=== PATIENT | female | born 1980 | race African-American/Black ===

== ENCOUNTER 2017-11-26 17:38 | Emergency (ER) | payer OTHER ==
[2017-11-26 17:44] VITALS: BP 115/71; PULSE 90; TEMP 99.6; BMI 31.5
--- NOTE | 2017-11-26 17:44 | PDOC ---
Rapid Medical Evaluation Chief Complaint: Shortness of Breath Time Seen by Provider: 11/26/17 17:41 Medical Evaluation: Allergies Allergy/AdvReac Type Severity Reaction Status Date / Time No Known Allergies Allergy Verified 11/26/17 17:40 11/26/17 17:41 I have performed a brief in-person evaluation of this patient. The patient presents with a chief complaint of: flu like symptoms x 5 days, subjective fever/chills, denies vomiting/diarrhea, sent in by PCP willa Hong +flu at home Pertinent physical exam findings: dry cough, lungs ctab I have ordered the following: cxr The patient will proceed to the ED for further evaluation. Discharge Disposition - Diagnosis Flu-like symptoms - Referrals - Patient Instructions - Post Discharge Activity
--- NOTE | 2017-11-26 21:59 | PDOC ---
History of Present Illness - General Chief Complaint: Shortness of Breath Stated Complaint: CHEST PAIN Time Seen by Provider: 11/26/17 17:41 History Source: Patient Exam Limitations: No Limitations - History of Present Illness Initial Comments: CHIEF COMPLAINT: 37 y/o female c/o flu like symptoms for the past 4 days. HISTORY OF PRESENT ILLNESS: the patient admits to [place], body aches, hot/chills, dry cough, chest discomfort, runny nose x 4 days. One of her children had the flu last week and another was diagnosed today. She states she was seen by Dr. Webster who suggested she come in for an evaluation. The patient is not taking any medication at home. Vital signs on arrival are within normal limits. REVIEW OF SYSTEMS: GENERAL/CONSTITUTIONAL: Subjective fever/chills. +body aches. No weakness. No weight change. HEAD, EYES, EARS, NOSE AND THROAT: No change in vision. No ear pain or discharge. No sore throat. CARDIOVASCULAR: +chest discomfort. No shortness of breath. RESPIRATORY: +dry cough. No wheezing or hemoptysis. GASTROINTESTINAL: No abd pain, nausea, vomiting, diarrhea. GENITOURINARY: No dysuria, frequency, or change in urination. MUSCULOSKELETAL: No joint or muscle swelling or pain. No neck or back pain. SKIN: No rash or easy bruising. NEUROLOGIC: +headache. No vertigo, loss of consciousness, or loss of sensation. PHYSICAL EXAM: GENERAL: The patient is awake, alert, and fully oriented, in no acute distress. She has a persistent dry cough. HEAD: Normal with no signs of trauma. ENT: Pupils equal, round and reactive to light, extraocular movements intact, sclera anicteric, conjunctiva clear. LUNGS: Clear to auscultation bilaterally. Normal excursion. No respiratory distress or use of accessory muscles. CV: RRR, S1/S2, no MRG. Cap refill < 2 sec. ABDOMEN: Soft, non-distended, non-tender even to deep palpation, no hepatomegaly or splenomegaly, no masses. EXTREMITIES: Normal range of motion, no edema. NEUROLOGICAL: Normal speech, normal gait. CN II-XII grossly intact. PSYCH: Normal mood, normal affect. SKIN: Warm, dry, normal turgor, no rashes or lesions noted. Past History - Past Medical History Allergies/Adverse Reactions: Allergies Allergy/AdvReac Type Severity Reaction Status Date / Time No Known Allergies Allergy Verified 11/26/17 17:40 Home Medications: Ambulatory Orders NK [No Known Home Medication] 12/26/15 Anemia: No Asthma: No Cancer: No Cardiac Disorders: No COPD: No DVT: No Diabetes: No HTN: No Seizures: No Thyroid Disease: No - Surgical History Abdominal Surgery: No - Reproductive History (#): 11 Para: 6 Therapeutic (s) & number: Yes (X 4) Spontaneous : 1 - Suicide/Smoking/Psychosocial Hx Smoking Status: No Smoking History: Never smoked Have you smoked in the past 12 months: No Number of Cigarettes Smoked Daily: 0 Information on smoking cessation initiated: No Hx Alcohol Use: No Drug/Substance Use Hx: No Substance Use Type: None Hx Substance Use Treatment: No *Physical Exam - Vital Signs Last Vital Signs Temp Pulse Resp BP Pulse Ox 99.6 F 90 18 115/71 100 11/26/17 17:41 11/26/17 17:41 11/26/17 17:41 11/26/17 17:41 11/26/17 17:41 Medical Decision Making - Medical Decision Making A/P: 37 y/o female with flu like symptoms and 2 close contacts with the flu. Plan is as follows: 1. hcg 2. CXR hcg - negative CXR (wet read) - No acute pathology. The patient was given her results. Patient has clinical flu and has 2 children with flu. Will diagnose her with the flu. She is on day 4 so outside of tamiflu window. Suggested she alternate between tylenol and motrin every 3 hours for fever/body aches, drink plenty of liquids and get lots of rest. Suggested she return to the ER with any worsening or concerning symptoms. The patient verbalizes understanding of all instructions, has no further questions and is awaiting discharge. *DC/Admit/Observation/Transfer Diagnosis at time of Disposition: Flu-like symptoms, Influenza - Discharge Dispostion Disposition: HOME Condition at time of disposition: Stable - Referrals Referrals: Bozena Webster MD [Primary Care Provider] - Call tomorrow - Patient Instructions Printed Discharge Instructions: DI for Influenza -- Adult Additional Instructions: Discharge Instructions: -You have the flu -Alternate between 600mg of Motrin and 650mg of Tylenol every 3 hours for fever -Drink plenty of fluids and get lots of rest -Follow up with Dr. Webster tomorrow -Return to the ER with any worsening or concerning symptoms - Post Discharge Activity Forms/Work/School Notes: Back to Work
--- NOTE | 2017-11-26 22:27 | PDOC ---
*Physical Exam - Vital Signs Last Vital Signs Temp Pulse Resp BP Pulse Ox 99.6 F 90 18 115/71 100 11/26/17 17:41 11/26/17 17:41 11/26/17 17:41 11/26/17 17:41 11/26/17 17:41 Medical Decision Making - Medical Decision Making 11/26/17 22:27 agree with care from DUNCAN Weston *DC/Admit/Observation/Transfer Diagnosis at time of Disposition: Flu-like symptoms - Referrals Referrals: Bozena Webster MD [Primary Care Provider] - - Patient Instructions - Post Discharge Activity
[2017-11-27] MEDS ORDERED: IBUPROFEN 600 MG TABLET (FP) PO ONE ×2 (00:19→00:25)
[2017-11-27] MEDS ORDERED: ALBUTEROL SO4 18 GM HFA INHALER IH PRN (00:20)
== END 2017-11-27 00:31 | disposition home or self-care (01) ==
LOC: JER 17:38
DX: J11.1 Influenza due to unidentified influenza virus with other respiratory manifestations (principal)
CPT/HCPCS: 71046-TC-FY; 84703; 99282-25

== ENCOUNTER 2018-01-26 23:31 | Emergency (ER) | payer OTHER ==
[2018-01-26 23:58] VITALS: BP 107/62; PULSE 77; TEMP 98.6; BMI 31.3
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
[2018-01-27] MEDS ORDERED: METHOCARBAMOL 500 MG TABLET PO ONE (01:01)
[2018-01-27] MEDS ORDERED: METHOCARBAMOL 500 MG TABLET ONE (01:03)
--- NOTE | 2018-01-27 12:18 | EKG ---
Test Reason : Blood Pressure : / mmHG Vent. Rate : 070 BPM Atrial Rate : 070 BPM P-R Int : 186 ms QRS Dur : 086 ms QT Int : 406 ms P-R-T Axes : 069 065 061 degrees QTc Int : 438 ms NORMAL SINUS RHYTHM POSSIBLE LEFT ATRIAL ENLARGEMENT BORDERLINE ECG WHEN COMPARED WITH ECG OF 30-JUN-2013 12:30, NO SIGNIFICANT CHANGE WAS FOUND Confirmed by HUY LYONS MD ([id number]) on 01/27/2018 12:18:18 PM Referred By: Confirmed By:HUY LYONS MD
== END 2018-01-27 02:27 | disposition home or self-care (01) ==
LOC: JER 23:31
DX: S29.8XXA Other specified injuries of thorax, initial encounter (principal); V43.54XA Car driver injured in collision with van in traffic accident, initial encounter; W22.11XA Striking against or struck by driver side automobile airbag, initial encounter; Y92.488 Other paved roadways as the place of occurrence of the external cause; Y93.89 Activity, other specified; Y99.8 Other external cause status
CPT/HCPCS: 71046-TC-FY; 93005; 93010; 99281-25